=== PATIENT | male | born 1985 | race Two or more races ===

== ENCOUNTER 2019-05-25 20:04 | Emergency (ER) | payer SELFPAY ==
[~2019-05-25] VITALS: Ht 180.3 cm; Wt 90.7 kg
[2019-05-25 21:21] VITALS: BP 138/71
[2019-05-25] MEDS ORDERED: DexAMETHasone SOD PHOS 10MG/1ML VIAL INJ IM ONE (22:15)
== END 2019-05-25 23:00 | disposition home or self-care (01) ==
LOC: ER 20:09
DX: S66.912A Strain of unspecified muscle, fascia and tendon at wrist and hand level, left hand, initial encounter (principal); W22.8XXA Striking against or struck by other objects, initial encounter; Y93.89 Activity, other specified; Y99.8 Other external cause status; Y92.89 Other specified places as the place of occurrence of the external cause
CPT/HCPCS: 73110; 96372; 99283; J1100